=== PATIENT | female | born 1985 | race Caucasian/White ===

== ENCOUNTER 2020-03-17 16:45 | Emergency (ER) | payer BC ==
[~2020-03-17] VITALS: Ht 161.5 cm; Wt 127.0 kg
--- NOTE | 2020-03-17 17:08 | ED Fever ---
History of Present Illness General Stated Complaint: SYNCOPE Source: patient Exam Limitations: no limitations History of Present Illness Date Seen by Provider: Mar 17, 2020 Time Seen by Provider: 16:50 Initial Comments The patient is a pleasant obese 35-year-old female who presents via EMS for evaluation of fever and syncope. She states that over the last 2 or 3 days she has been having a fever with some intermittent nausea and a cough. She states that yesterday she called the [facility] to see if she should have a coronavirus testing and they told her that she did not need to get one. Today she was at home and passed out and her called EMS. Currently she denies headache, neck pain or stiffness, nausea, abdominal or back pain, urinary complaints, dizziness, sore throat, earache, vision changes, confusion, rash, or diarrhea. She is alert and oriented 4, calm, and appears to be in no distress this time. She states that her temperature was as high as 104 or 105 yesterday. Upon arrival her temperature is around 100F. Timing/Duration: other (2-3 days) Fever Quality: low grade Fever Therapy PSYCH TECH: none Associated Symptoms: cough, nausea/vomiting Allergies and Home Medications Allergies Coded Allergies: No Known Drug Allergies (Unverified , 03/17/20) Patient Home Medication List Home Medication List Reviewed: Yes Review of Systems Review of Systems Constitutional: fever EENTM: no symptoms reported Respiratory: cough Cardiovascular: syncope Gastrointestinal: no symptoms reported Genitourinary: no symptoms reported Musculoskeletal: no symptoms reported Skin: no symptoms reported Psychiatric/Neurological: No Symptoms Reported Hematologic/Lymphatic: No Symptoms Reported Immunological/Allergic: no symptoms reported All Other Systems Reviewed Negative Unless Noted: Yes Past Qqyrpnk-Lozena-Gbkuod Hx Past Med/Social Hx: Reviewed Nursing Past Med/Soc Hx Physical Exam Vital Signs - First Documented 03/17/20 16:48 Temp 37.8 Pulse 97 Resp 16 B/P (MAP) 130/62 (84) Pulse Ox 99 O2 Delivery Room Air Capillary Refill : Height: '" Weight: lbs. oz. kg; BMI Method: General Appearance: WD/WN, no apparent distress, obese Eyes: Bilateral Eye Normal Inspection, Bilateral Eye PERRL, Bilateral Eye EOMI HEENT: PERRL/EOMI, pharynx normal Neck: non-tender, full range of motion, supple, normal inspection, other (negative Kernig's and Brudzinski signs) Respiratory: lungs clear, normal breath sounds, no respiratory distress, no accessory muscle use Cardiovascular: regular rate, rhythm, no edema, no JVD, no murmur Gastrointestinal: normal bowel sounds, non tender, soft, no pulsatile mass Extremities: non-tender, no pedal edema Neurologic/Psychiatric: no motor/sensory deficits, alert, normal mood/affect, oriented x 3 Skin: normal color, warm/dry Lymphatic: no adenopathy Focused Exam Lactate Level 03/17/20 16:50: Lactic Acid Level 2.52*H Lactic Acid Level Laboratory Tests Test 03/17/20 16:50 Lactic Acid Level 2.52 MMOL/L (0.50-2.00) *H Progress/Results/Core Measures Suspected Sepsis SIRS Temperature: Pulse: Respiratory Rate: Laboratory Tests 03/17/20 16:50: White Blood Count 6.6 Blood Pressure / Mean: 03/17/20 16:50: Lactic Acid Level 2.52*H Laboratory Tests 03/17/20 16:50: Platelet Count 409H Results/Orders Lab Results Laboratory Tests Test 03/17/20 16:50 03/17/20 16:55 03/17/20 17:38 Range/Units White Blood Count 6.6 4.3-11.0 10^3/uL Red Blood Count 4.15 L 4.35-5.85 10^6/uL Hemoglobin 7.5 L 11.5-16.0 G/DL Hematocrit 27 L 35-52 % Mean Corpuscular Volume 64 L 80-99 FL Mean Corpuscular Hemoglobin 18 L 25-34 PG Mean Corpuscular Hemoglobin Concent 27 L 32-36 G/DL Red Cell Distribution Width 20.4 H 10.0-14.5 % Platelet Count 409 H 130-400 10^3/uL Mean Platelet Volume 8.8 7.4-10.4 FL Immature Granulocyte % (Auto) 1 % Neutrophils (%) (Auto) 77 H 42-75 % Lymphocytes (%) (Auto) 11 L 12-44 % Monocytes (%) (Auto) 11 0-12 % Eosinophils (%) (Auto) 0 0-10 % Basophils (%) (Auto) 0 0-10 % Neutrophils # (Auto) 5.1 1.8-7.8 X 10^3 Lymphocytes # (Auto) 0.7 L 1.0-4.0 X 10^3 Monocytes # (Auto) 0.7 0.0-1.0 X 10^3 Eosinophils # (Auto) 0.0 0.0-0.3 10^3/uL Basophils # (Auto) 0.0 0.0-0.1 10^3/uL Immature Granulocyte # (Auto) 0.0 0.0-0.1 10^3/uL Lactic Acid Level 2.52 *H 0.50-2.00 MMOL/L Magnesium Level 1.8 1.6-2.4 MG/DL Urine Color YELLOW Urine Clarity CLOUDY Urine pH 6.5 5-9 Urine Specific [place] 1.020 1.016-1.022 Urine Protein 1+ H NEGATIVE Urine Glucose (UA) NEGATIVE NEGATIVE Urine Ketones NEGATIVE NEGATIVE Urine Nitrite NEGATIVE NEGATIVE Urine Bilirubin NEGATIVE NEGATIVE Urine Urobilinogen 0.2 < = 1.0 MG/DL Urine Leukocyte Esterase NEGATIVE NEGATIVE Urine RBC (Auto) NEGATIVE NEGATIVE Urine RBC 5-10 H /HPF Urine WBC 10-25 H /HPF Urine Squamous Epithelial Cells 10-25 H /HPF Urine Crystals NONE /LPF Urine Bacteria LARGE H /HPF Urine Casts PRESENT /LPF Urine Granular Casts 2-5 H /LPF Urine Mucus NEGATIVE /LPF Urine Culture Indicated YES Urine Test NEGATIVE NEGATIVE Micro Results Microbiology 03/17/20 Influenza Types A,B Antigen ([facility]) - Final, Complete My Orders Orders - EDUARD MAYORGA DO Cbc With Automated Diff (03/17/20 16:54) Hcg,Qualitative Urine (03/17/20 16:54) Lactic Acid Analyzer (03/17/20 16:54) Magnesium (03/17/20 16:54) Ua Culture If Indicated (03/17/20 16:54) Blood Culture (03/17/20 16:54) Influenza A And B Antigens (03/17/20 16:54) Ekg Tracing (03/17/20 16:54) Continuous Ekg Monitoring (03/17/20 16:54) Procalcitonin (Pct) (03/17/20 16:59) Coronavirus Sars-Cov-2 So 2018 (03/17/20 16:59) Chest 1 View Ap/Pa Only (03/17/20 17:47) Urine Culture (03/17/20 17:38) Vital Signs/I&O 10/2/20 16:48 Temp 37.8 Pulse 97 Resp 16 B/P (MAP) 130/62 (84) Pulse Ox 99 O2 Delivery Room Air Capillary Refill : Progress Note : Progress Note @191 - the patient states that she is feeling better at this time. I brought up the anemia noted on her lab results and the patient states that she has a hist ory of anemia and used to take iron supplements but does not currently. She has no new complaints. I explained the patient that she has been tested for the coronavirus and that she needs to stay home and away from others until she knows the results of her tests. She expresses verbal understanding and agreement with this plan and feels comfortable going home at this time. Workup today fails reveal any emergent pathology and the patient is stable for discharge. ECG Comment @1700 - Sinus tachycardia, rate of 101, mild left axis deviation, no acute ischemic findings noted, no STEMI, reviewed and interpreted by myself Diagnostic Imaging Diagonstic Imaging: Xray Comments [facility], [place] NAME: BREE SARMIENTO [facility] REC#: [id number] PT STATUS: REG ER : 1985 PHYSICIAN: EDUARD MAYORGA DO ADMIT DATE: 03/17/20/ER FS Signed Date of Exam:03/17/20 CHEST 1 VIEW AP/PA ONLY EXAMINATION: Chest 1 view. HISTORY: Fever. Cough. COMPARISON: None available. FINDINGS: The lung volumes are normal. No focal consolidation is seen. No large pleural effusion or pneumothorax is seen. The cardiomediastinal silhouette is prominent. No acute osseous abnormality is seen. IMPRESSION: 1. Prominent cardiac silhouette, which may be partially due to technique. Recommend correlation with patient history. 2. No focal consolidation or pleural effusion. Dictated by: Dictated on workstation # [id number] Dict: 03/17/201824 Trans: 03/17/201832 [facility] [id number] Interpreted by: LAURENT SERRANO DO Electronically signed by: LAURENT SERRANO DO 03/17/201832 Departure Impression Primary Impression: Viral syndrome Additional Impressions: Syncope Anemia Disposition: 01 HOME, SELF-CARE Condition: Stable Departure-Patient Inst. Decision time for Depature: 19:12 Referrals: MARY HUNT DO (PCP/Family) Primary Care Physician Patient Instructions: Anemia Caused by Low Iron, Adult (DC), Syncope (Fainting) (DC), Viral Upper Respiratory Infection, Adult (DC) Add. Discharge Instructions: As we discussed your hemoglobin which is your blood count was low today and this needs to be followed up with her primary care in the next few days. He used to take iron supplements and he may need to take take them again. You were tested for the coronavirus today and the results may take a few days to come back. They state home and away from other people until he noted the results of this test. Return to the emergency Department immediately for difficulty breathing, new or worsening symptoms. Take Tylenol or ibuprofen at home for fever or pain relief and drink plenty of water to stay well-hydrated. EDUARD MAYORGA DO Mar 17, 2020 17:08
[2020-03-17 17:12] LABS: HEMATOCRIT 27 % (35-52); MEAN CORPUSCULAR HGB CONC 27 G/DL (32-36); MEAN CORPUSCULAR VOLUME 64 FL (80-99); MEAN PLATELET VOLUME 8.8 FL (7.4-10.4); PLATELET COUNT 409 10^3/uL (130-400); WHITE BLOOD COUNT 6.6 10^3/uL (4.3-11.0)
[2020-03-17 17:13] LABS: BASOPHILS % (AUTO) 0 % (0-10); EOSINOPHILS % (AUTO) 0 % (0-10); HEMOGLOBIN 7.5 G/DL (11.5-16.0); LYMPHOCYTES # (AUTO) 0.7 X 10^3 (1.0-4.0); LYMPHOCYTES % (AUTO) 11 % (12-44); MEAN CORPUSCULAR HEMOGLOBIN 18 PG (25-34); MONOCYTES # (AUTO) 0.7 X 10^3 (0.0-1.0); MONOCYTES % (AUTO) 11 % (0-12); NEUTROPHILS # (AUTO) 5.1 X 10^3 (1.8-7.8); NEUTROPHILS % (AUTO) 77 % (42-75)
[2020-03-17 17:51] LABS: BACTERIA,URINE LARGE /HPF; BILIRUBIN,URINE NEGATIVE (NEGATIVE); CLARITY,URINE CLOUDY; COLOR,URINE YELLOW; GLUCOSE, URINE (UA) NEGATIVE (NEGATIVE); KETONES,URINE NEGATIVE (NEGATIVE); LEUKOCYTE ESTERASE ,URINE NEGATIVE (NEGATIVE); NITRITE,URINE NEGATIVE (NEGATIVE); PH,URINE 6.5 (5-9); PROTEIN,URINE 1+ (NEGATIVE)
--- NOTE | 2020-03-17 18:29 | Diagnostic Imaging Report ---
EXAMINATION: Chest 1 view. HISTORY: Fever. Cough. COMPARISON: None available. FINDINGS: The lung volumes are normal. No focal consolidation is seen. No large pleural effusion or pneumothorax is seen. The cardiomediastinal silhouette is prominent. No acute osseous abnormality is seen. IMPRESSION: 1. Prominent cardiac silhouette, which may be partially due to technique. Recommend correlation with patient history. 2. No focal consolidation or pleural effusion. Dictated by: Dictated on workstation # [id number]
[2020-03-17 19:18] VITALS: BP 130/62
--- NOTE | 2020-03-19 15:45 | NUR ---
Patient notified of Positive COVID test. Questions answered.
== END 2020-03-17 19:26 | disposition home or self-care (01) ==
LOC: EDUNIT# 16:45 → ER FS 16:46
DX: U07.1 COVID-19 (principal); R55 Syncope and collapse; D64.9 Anemia, unspecified; E66.9 Obesity, unspecified
CPT/HCPCS: 36415; 71045; 81000; 83605; 83735; 84145; 84703; 85025; 87040; 87088; 87804 ×2; 93005; 99284; U0002; 87635

== ENCOUNTER → 2020-03-27 | Outpatient (CLI) | payer BC ==
[2020-03-27 12:03] LABS: BASOPHILS % (AUTO) 0 % (0-10); EOSINOPHILS # (AUTO) 0.2 10^3/uL (0.0-0.3); EOSINOPHILS % (AUTO) 2 % (0-10); HEMATOCRIT 31 % (35-52); HEMOGLOBIN 8.3 G/DL (11.5-16.0); LYMPHOCYTES # (AUTO) 1.5 X 10^3 (1.0-4.0); LYMPHOCYTES % (AUTO) 20 % (12-44); MEAN CORPUSCULAR HEMOGLOBIN 17 PG (25-34); MEAN CORPUSCULAR HGB CONC 26 G/DL (32-36); MEAN CORPUSCULAR VOLUME 66 FL (80-99); MEAN PLATELET VOLUME 9.4 FL (7.4-10.4); MONOCYTES # (AUTO) 0.7 X 10^3 (0.0-1.0); MONOCYTES % (AUTO) 9 % (0-12); NEUTROPHILS # (AUTO) 5.1 X 10^3 (1.8-7.8); NEUTROPHILS % (AUTO) 67 % (42-75); PLATELET COUNT 802 10^3/uL (130-400); WHITE BLOOD COUNT 7.6 10^3/uL (4.3-11.0)
== END ==
LOC: LAB FS 11:08
PROVIDERS: ATTEND Family Medicine
DX: D64.9 Anemia, unspecified (principal)
CPT/HCPCS: 36415; 82728; 83540; 85025

== ENCOUNTER → 2020-05-01 | Outpatient (CLI) | payer BC ==
--- NOTE | 2020-05-01 11:07 | Diagnostic Imaging Report ---
Indication: Fall with right knee pain. Time of exam 10:45 AM 3 views of the right knee were obtained. Alignment is normal. Joint spaces are well-maintained. Articular surfaces are smooth. No fracture, dislocation or effusion is detected. IMPRESSION: No acute abnormality is detected. Dictated by: Dictated on workstation # [id number]
== END ==
LOC: LAB FS 10:24
PROVIDERS: ATTEND Family Medicine
DX: M25.562 Pain in left knee (principal)
CPT/HCPCS: 73562

== ENCOUNTER → 2020-07-07 | Outpatient (CLI) | payer BC ==
[2020-07-07 09:30] LABS: ALKALINE PHOSPHATASE 90 U/L (40-136); BILIRUBIN,TOTAL 0.5 MG/DL (0.1-1.0); BUN/CREATININE RATIO 13; CALCIUM 9.9 MG/DL (8.5-10.1); CARBON DIOXIDE 28 MMOL/L (21-32); CHLORIDE 102 MMOL/L (98-107); GFR ESTIMATED > 60; GLUCOSE 142 MG/DL (70-105); SODIUM 141 MMOL/L (135-145)
[2020-07-07 09:31] LABS: ALANINE AMINOTRANSFERASE 14 U/L (0-55); ALBUMIN 4.2 GM/DL (3.2-4.5); HEMOGLOBIN 13.2 G/DL (11.5-16.0); MEAN CORPUSCULAR HEMOGLOBIN 25 PG (25-34); TOTAL PROTEIN 7.5 GM/DL (6.4-8.2); WHITE BLOOD COUNT 7.3 10^3/uL (4.3-11.0)
[2020-07-07 09:32] LABS: HEMATOCRIT 42 % (35-52); MEAN CORPUSCULAR HGB CONC 31 G/DL (32-36); MEAN CORPUSCULAR VOLUME 80 FL (80-99)
[2020-07-07 09:33] LABS: BASOPHILS % (AUTO) 1 % (0-10); EOSINOPHILS # (AUTO) 0.3 10^3/uL (0.0-0.3); EOSINOPHILS % (AUTO) 3 % (0-10); LYMPHOCYTES # (AUTO) 1.2 X 10^3 (1.0-4.0); LYMPHOCYTES % (AUTO) 17 % (12-44); MEAN PLATELET VOLUME 9.2 FL (7.4-10.4); MONOCYTES # (AUTO) 0.4 X 10^3 (0.0-1.0); MONOCYTES % (AUTO) 6 % (0-12); NEUTROPHILS # (AUTO) 5.3 X 10^3 (1.8-7.8); NEUTROPHILS % (AUTO) 73 % (42-75); PLATELET COUNT 506 10^3/uL (130-400)
[2020-07-07 10:02] LABS: CHOLESTEROL 181 MG/DL (< 200); HDL CHOLESTEROL 40 MG/DL (40-60); TRIGLYCERIDES 143 MG/DL (<150); VLDL CHOLESTEROL 29 MG/DL (5-40)
== END ==
LOC: LAB FS 07:08
PROVIDERS: ATTEND Family Medicine
DX: Z00.00 Encounter for general adult medical examination without abnormal findings (principal); E07.9 Disorder of thyroid, unspecified; R05 Cough; R73.9 Hyperglycemia, unspecified
CPT/HCPCS: 36415; 80053; 80061; 83036; 84443; 85025

== ENCOUNTER → 2020-07-11 | Outpatient (CLI) | payer BC ==
--- NOTE | 2020-07-11 09:57 | Diagnostic Imaging Report ---
EXAMINATION: Chest 2 view HISTORY: Shortness of breath. Cough. COMPARISON: 03/17/2020. FINDINGS: The lung volumes are normal. No focal consolidation is seen. No large pleural effusion or pneumothorax is seen. The cardiomediastinal silhouette is normal in size and contour. No acute osseous abnormality is seen. IMPRESSION: 1. No focal consolidations or pleural effusions. Dictated by: Dictated on workstation # [id number]
== END ==
LOC: RAD FS 09:27
PROVIDERS: ATTEND Family Medicine
DX: R06.02 Shortness of breath (principal); R05 Cough
CPT/HCPCS: 71046

== ENCOUNTER → 2020-08-30 | Outpatient (CLI) | payer BC ==
[~2020-08-30] MED LIST: RT-ALBUTEROL SULF 2.5 MG/3 ML PRE-MIX VIAL INH ONE
== END ==
LOC: RT 10:18
PROVIDERS: ATTEND Family Medicine
DX: R06.00 Dyspnea, unspecified (principal)
CPT/HCPCS: 94060; 94726; 94729

== ENCOUNTER → 2021-02-27 | Outpatient (CLI) | payer BC ==
[2021-02-27 16:19] LABS: HEMATOCRIT 38 % (35-52); HEMOGLOBIN 12.2 g/dL (11.5-16.0); MEAN CORPUSCULAR HEMOGLOBIN 26 pg (25-34); MEAN CORPUSCULAR HGB CONC 32 g/dL (32-36); MEAN CORPUSCULAR VOLUME 81 fL (80-99); PLATELET COUNT 647 10^3/uL (130-400); WHITE BLOOD COUNT 11.7 10^3/uL (4.3-11.0)
[2021-02-27 16:20] LABS: BASOPHILS % (AUTO) 1 % (0-10); EOSINOPHILS % (AUTO) 2 % (0-10); LYMPHOCYTES # (AUTO) 2.3 X 10^3 (1.0-4.0); LYMPHOCYTES % (AUTO) 20 % (12-44); MEAN PLATELET VOLUME 8.8 fL (9.0-12.2); MONOCYTES # (AUTO) 0.7 X 10^3 (0.0-1.0); MONOCYTES % (AUTO) 6 % (0-12); NEUTROPHILS # (AUTO) 8.3 X 10^3 (1.8-7.8); NEUTROPHILS % (AUTO) 71 % (42-75)
[2021-02-27 16:21] LABS: BASOPHILS # (AUTO) 0.1 10^3/uL (0.0-0.1); EOSINOPHILS # (AUTO) 0.3 10^3/uL (0.0-0.3)
[2021-02-27 17:30] LABS: ALBUMIN 4.3 GM/DL (3.2-4.5); BILIRUBIN,TOTAL 0.6 MG/DL (0.1-1.0); CALCIUM 9.7 MG/DL (8.5-10.1); CREATININE SERUM 0.61 MG/DL (0.60-1.30); POTASSIUM 3.8 MMOL/L (3.6-5.0); TOTAL PROTEIN 7.8 GM/DL (6.4-8.2)
== END ==
LOC: LAB FS 15:48
PROVIDERS: ATTEND Family Medicine
DX: E11.9 Type 2 diabetes mellitus without complications (principal); E03.9 Hypothyroidism, unspecified; I10 Essential (primary) hypertension; E61.1 Iron deficiency; R53.83 Other fatigue
CPT/HCPCS: 36415; 80053; 82306; 82607; 83036; 84443; 85025

== ENCOUNTER → 2021-05-11 | Outpatient (CLI) | payer SELFPAY ==
--- NOTE | 2021-05-11 13:56 | Diagnostic Imaging Report ---
CT coronary calcium score INDICATION: Mixed hyperlipidemia. Short of breath and intermittent chest pain. TECHNIQUE: High-resolution CT of the chest was performed through the level of the heart with particular attention paid to the coronary arteries. Images were analyzed for the extent and presence of coronary calcifications using coronary calcium quantification software. FINDINGS: There are no identifiable coronary calcifications demonstrated. The patient's total coronary Michelle score is 0. Given no identifiable coronary calcifications, the likelihood of hemodynamically significant coronary artery disease is low. Heart size appears appropriate. There is no pericardial collection. The thoracic aorta is normal in caliber where visualized. The visualized portion of the lungs appear clear. IMPRESSION: 1. No identified coronary artery calcifications. The patient's total coronary Michelle score is 0. Lack of identifiable coronary calcifications makes the likelihood of hemodynamically significant coronary artery disease very low. 2. Visualized portion of the lungs are clear. Dictated by: Dictated on workstation # [id number]
== END ==
LOC: RAD FS 08:33
PROVIDERS: ATTEND Family Medicine
DX: E78.2 Mixed hyperlipidemia (principal); R06.02 Shortness of breath; R07.9 Chest pain, unspecified
CPT/HCPCS: 75571

== ENCOUNTER 2021-05-29 16:22 | Emergency (ER) | payer BC ==
[~2021-05-29] VITALS: Ht 160 cm; Wt 56.0 kg
--- NOTE | 2021-05-29 16:30 | ED Chest Pain ---
General Stated Complaint: CP,LEFT ARM History of Present Illness Date Seen by Provider: May 29, 2021 Time Seen by Provider: 16:30 Initial Comments 36-year-old female presents with a mild discomfort in her left arm/very high left upper chest. She reports that she thinks is by nothing that she "just freaked herself out" but came in to have it evaluated to make sure it was not her heart. Patient reports that nothing makes it worse or better. That is very minimal and just a minor discomfort at this time. Patient reports that she is recently had a chest CT that was negative because she was anxious about her breathing. Patient has no radiation of the pain, no nausea, vomiting, diaphoresis or any other associated symptoms. Patient reports she took 5 aspirin prior to arrival. Allergies and Home Medications Allergies Coded Allergies: No Known Drug Allergies (Unverified , 03/17/20) Patient Home Medication List Home Medication List Reviewed: Yes Review of Systems Review of Systems Constitutional: see HPI; No chills EENTM: No Symptoms Reported Respiratory: No Symptoms Reported Cardiovascular: See HPI; Denies Irregular Heart Rate, Denies Lightheadedness, Denies Palpitations Gastrointestinal: No Symptoms Reported Genitourinary: No Symptoms Reported Musculoskeletal: see HPI Psychiatric/Neurological: No Symptoms Reported Endocrine: No Symptoms Reported Hematologic/Lymphatic: No Symptoms Reported Past Ysxkmnj-Apdfqs-Uoiglh Hx Seasonal Allergies Seasonal Allergies: Yes Past Medical History Surgeries: No Section Respiratory: No Cardiac: Yes Hypotension Neurological: No Sexually Transmitted Disease: No HIV/AIDS: No Genitourinary: No Gastrointestinal: No Musculoskeletal: No Hypothyroidsim HEENT: No Cancer: No Psychosocial: No Integumentary: No Blood Disorders: No Physical Exam Vital Signs Vital Signs - First Documented 05/29/21 16:25 Temp 36.4 Pulse 81 Resp 18 B/P (MAP) 172/82 (112) Pulse Ox 98 O2 Delivery Room Air Capillary Refill : Height, Weight, BMI Height: '" Weight: lbs. oz. 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 Skin: Normal Color, Warm/Dry Progress/Results/Core Measures Results/Orders Lab Results Laboratory Tests Test 05/29/21 16:40 Range/Units White Blood Count 11.3 H 4.3-11.0 10^3/uL Red Blood Count 4.77 3.80-5.11 10^6/uL Hemoglobin 12.0 11.5-16.0 g/dL Hematocrit 38 35-52 % Mean Corpuscular Volume 80 80-99 fL Mean Corpuscular Hemoglobin 25 25-34 pg Mean Corpuscular Hemoglobin Concent 32 32-36 g/dL Red Cell Distribution Width 16.1 H 10.0-14.5 % Platelet Count 562 H 130-400 10^3/uL Mean Platelet Volume 8.6 L 9.0-12.2 fL Immature Granulocyte % (Auto) 0 % Neutrophils (%) (Auto) 73 42-75 % Lymphocytes (%) (Auto) 16 12-44 % Monocytes (%) (Auto) 8 0-12 % Eosinophils (%) (Auto) 3 0-10 % Basophils (%) (Auto) 1 0-10 % Neutrophils # (Auto) 8.2 H 1.8-7.8 X 10^3 Lymphocytes # (Auto) 1.9 1.0-4.0 X 10^3 Monocytes # (Auto) 0.9 0.0-1.0 X 10^3 Eosinophils # (Auto) 0.3 0.0-0.3 10^3/uL Basophils # (Auto) 0.1 0.0-0.1 10^3/uL Immature Granulocyte # (Auto) 0.0 0.0-0.1 10^3/uL Prothrombin Time 12.2 12.2-14.7 SEC INR Comment 0.9 0.8-1.4 Activated Partial Thromboplast Time 33 24-35 SEC Sodium Level 138 135-145 MMOL/L Potassium Level 3.7 3.6-5.0 MMOL/L Chloride Level 97 L 98-107 MMOL/L Carbon Dioxide Level 27 21-32 MMOL/L Anion Gap 14 5-14 MMOL/L Blood Urea Nitrogen 8 7-18 MG/DL Creatinine 0.70 0.60-1.30 MG/DL Estimat Glomerular Filtration Rate 95 BUN/Creatinine Ratio 11 Glucose Level 108 H 70-105 MG/DL Calcium Level 9.7 8.5-10.1 MG/DL Corrected Calcium 9.5 8.5-10.1 MG/DL Magnesium Level 1.8 1.6-2.4 MG/DL Total Bilirubin 0.5 0.1-1.0 MG/DL Aspartate Amino Transf (AST/SGOT) 16 5-34 U/L Alanine Aminotransferase (ALT/SGPT) 17 0-55 U/L Alkaline Phosphatase 88 40-136 U/L Myoglobin 21.0 10.0-92.0 NG/ML Troponin I < 0.30 <0.30 NG/ML Total Protein 8.1 6.4-8.2 GM/DL Albumin 4.3 3.2-4.5 GM/DL My Orders Orders - SHETTYAURAJULIETH L DO Cbc With Automated Diff (05/29/21 16:33) Magnesium (05/29/21 16:33) Chest 1 View Ap/Pa Only (05/29/21 16:33) Ekg Tracing (05/29/21 16:33) Comprehensive Metabolic Panel (05/29/21 16:33) Myoglobin Serum (05/29/21 16:33) Protime With Inr (05/29/21 16:33) Partial Thromboplastin Time (05/29/21 16:33) Monitor-Rhythm Ecg Trace Only (05/29/21 16:33) Aspirin Chewable Tablet (Baby Aspirin Ch (05/29/21 16:45) Ed Iv/Invasive Line Start (05/29/21 16:33) Troponin I Fs (05/29/21 16:33) Vital Signs/I&O 05/29/21 05/29/21 16:25 17:27 Temp 36.4 36.2 Pulse 81 77 Resp 18 18 B/P (MAP) 172/82 (112) 122/76 Pulse Ox 98 99 O2 Delivery Room Air Room Air Progress Progress Note : Progress Note Patient with a nonspecific pain is located more in the shoulder than the chest. Patient with negative EKG, chest x-ray, troponin and labs. She does have a very minor elevated white count. This is very nonspecific. Discussed with patient that does not appear to have any cardiac related pain. Patient's pain as virtu ally resolved. Patient stable and discharged home Initial ECG Impression Date: May 29, 2021 Initial ECG Impression Time: 16:26 Initial ECG Rate: 71 Initial ECG Rhythm: Normal Sinus Initial ECG Intervals: Normal Initial ECG Impression: Normal Departure Impression Primary Impression: Nonspecific chest pain Disposition: 01 HOME, SELF-CARE Condition: Stable Departure-Patient Inst. Referrals: YEHUDA DOMINGUEZ MD (PCP/Family) Primary Care Physician Patient Instructions: Chest Pain That Is Not Caused by the Heart (DC) Add. Discharge Instructions: Follow-up with your primary care provider for further outpatient evaluation Return to the ER as JULIETH Verde DO May 29, 2021 16:30
[2021-05-29] MEDS ORDERED: ASPIRIN 81 MG CHEW (CHILDREN'S ASA) PO ONE (16:45)
--- NOTE | 2021-05-29 16:49 | Diagnostic Imaging Report ---
EXAMINATION: Chest, 1 view. HISTORY: Chest pain. COMPARISON: 03/17/2020. FINDINGS: The heart size and pulmonary vasculature are normal. The lungs are clear without consolidation, pleural effusion, or pneumothorax. The osseous structures are intact. IMPRESSION: No acute radiographic abnormality in the chest. Dictated by: Dictated on workstation # [id number]
[2021-05-29 16:52] LABS: HEMATOCRIT 38 % (35-52); MEAN CORPUSCULAR HEMOGLOBIN 25 pg (25-34); MEAN CORPUSCULAR HGB CONC 32 g/dL (32-36); MEAN CORPUSCULAR VOLUME 80 fL (80-99); MEAN PLATELET VOLUME 8.6 fL (9.0-12.2); PLATELET COUNT 562 10^3/uL (130-400); WHITE BLOOD COUNT 11.3 10^3/uL (4.3-11.0)
[2021-05-29 16:53] LABS: BASOPHILS # (AUTO) 0.1 10^3/uL (0.0-0.1); BASOPHILS % (AUTO) 1 % (0-10); EOSINOPHILS # (AUTO) 0.3 10^3/uL (0.0-0.3); EOSINOPHILS % (AUTO) 3 % (0-10); LYMPHOCYTES # (AUTO) 1.9 X 10^3 (1.0-4.0); LYMPHOCYTES % (AUTO) 16 % (12-44); MONOCYTES # (AUTO) 0.9 X 10^3 (0.0-1.0); MONOCYTES % (AUTO) 8 % (0-12); NEUTROPHILS # (AUTO) 8.2 X 10^3 (1.8-7.8); NEUTROPHILS % (AUTO) 73 % (42-75)
[2021-05-29 17:08] LABS: INR 0.9 (0.8-1.4); PROTHROMBIN TIME PATIENT 12.2 SEC (12.2-14.7)
[2021-05-29 17:22] LABS: POTASSIUM 3.7 MMOL/L (3.6-5.0)
[2021-05-29 17:23] LABS: BILIRUBIN,TOTAL 0.5 MG/DL (0.1-1.0); CALCIUM 9.7 MG/DL (8.5-10.1); CREATININE SERUM 0.7 MG/DL (0.60-1.30); MAGNESIUM 1.8 MG/DL (1.6-2.4); TOTAL PROTEIN 8.1 GM/DL (6.4-8.2)
[2021-05-29 17:24] LABS: ALBUMIN 4.3 GM/DL (3.2-4.5)
[2021-05-29 17:27] VITALS: BP 122/76
== END 2021-05-29 17:58 | disposition home or self-care (01) ==
LOC: EDUNIT# 16:22 → ER FS 16:23
DX: R07.89 Other chest pain (principal); E66.9 Obesity, unspecified; Z68.42 Body mass index [BMI] 45.0-49.9, adult
CPT/HCPCS: 36415; 71045; 80053; 83735; 83874; 84484; 85025; 85610; 85730; 93005; 93041

== ENCOUNTER 2021-12-14 13:13 | Emergency (ER) | payer BC ==
[~2021-12-14] VITALS: Ht 160 cm; Wt 56.0 kg
[2021-12-14] MEDS ORDERED: KETOROLAC 30 MG/ML VIAL IM ONE (13:45)
--- NOTE | 2021-12-14 13:45 | ED General ---
General Chief Complaint: Dizziness/Syncope Stated Complaint: DIZZINESS; NAUSEA Nursing Triage Note: PT REPORTS SHE LAST NIGHT SHE WAS DIZZY WITH SOME CONFUSION AND A STOMACH ACHE. SHE REPORTS SSHE IS BETTER TODAY BUT STILL DIZZY AND WANTS CHECKED OUT. History of Present Illness Date Seen by Provider: Dec 14, 2021 Time Seen by Provider: 13:37 Initial Comments 36-year-old female with PMH of migraines and anxiety, is here with complaints of dizziness and headache today. Patient normally has aura of right eye irritation and occasional dizziness right before she gets a migraine headache which is usually right-sided. Today patient had the same symptoms but was a little concerned and was wondering if the momentary dizziness was part of the aura. The dizziness resolved and then she had a migraine. Headache is still present. Patient normally takes ibuprofen for migraines at home. Patient has some mild associated nausea. Denies fever, vomiting, seizures, blurry vision. Allergies and Home Medications Allergies Coded Allergies: No Known Drug Allergies (Unverified , 03/17/20) Patient Home Medication List Home Medication List Reviewed: Yes Review of Systems Review of Systems Constitutional: no symptoms reported EENTM: no symptoms reported Respiratory: no symptoms reported Cardiovascular: no symptoms reported Gastrointestinal: no symptoms reported Genitourinary: no symptoms reported Musculoskeletal: no symptoms reported Skin: no symptoms reported Psychiatric/Neurological: Headache Hematologic/Lymphatic: No Symptoms Reported Immunological/Allergic: no symptoms reported Past Oavbtnv-Drgyyg-Acqxzc Hx Patient Social History Tobacco Use?: No Use of E-Cig and/or Vaping dev: No Substance use?: No Alcohol Use?: No Pt feels they are or have been: No Seasonal Allergies Seasonal Allergies: Yes Past Medical History Surgery/Hospitalization HX: HYPERTENSION DIABETIC Surgeries: No Section Respiratory: No Cardiac: Yes Hypotension Neurological: No Sexually Transmitted Disease: No HIV/AIDS: No Genitourinary: No Gastrointestinal: No Musculoskeletal: No Hypothyroidsim HEENT: No Cancer: No Psychosocial: No Integumentary: No Blood Disorders: No Physical Exam Vital Signs Vital Signs - First Documented 12/14/21 13:23 Temp 36.7 Pulse 87 Resp 18 B/P (MAP) 143/65 (91) Pulse Ox 98 Capillary Refill : Less Than 3 Seconds Height, Weight, BMI Height: '" Weight: lbs. oz. kg; 21.00 BMI Method: General Appearance: No Apparent Distress, WD/WN HEENT: PERRL/EOMI, TMs Normal, Normal ENT Inspection, Pharynx Normal Neck: Full Range of Motion, Normal Inspection, Non Tender, Supple Respiratory: Chest Non Tender, Lungs Clear, Normal Breath Sounds Cardiovascular: Regular Rate, Rhythm Gastrointestinal: Non Tender, Soft Neurologic/Psychiatric: Alert, Oriented x3, No Motor/Sensory Deficits Skin: Normal Color Progress/Results/Core Measures Suspected Sepsis SIRS Temperature: Pulse: 87 Respiratory Rate: 18 Blood Pressure 143 /65 Mean: 91 Results/Orders Lab Results Laboratory Tests Test 12/14/21 13:42 Range/Units Glucometer 118 H 70-110 MG/DL My Orders Orders - ABIOLA NEGRETE MD Ketorolac Injection (Toradol Injection) (12/14/21 13:45) Ondansetron Oral Dissolve Tab (Zofran (12/14/21 13:58) Medications Given in ED Current Medications Medications Dose Ordered Sig/Margie Route Start Time Stop Time Status Last Admin Dose Admin Ketorolac Tromethamine 30 mg ONCE ONCE IM 12/14/21 13:45 12/14/21 13:56 DC 12/14/21 14:05 30 MG Vital Signs/I&O 12/14/21 13:23 Temp 36.7 Pulse 87 Resp 18 B/P (MAP) 143/65 (91) Pulse Ox 98 Capillary Refill : Less Than 3 Seconds Blood Pressure Mean: 91 Progress Note : Progress Note 1. MIGRAINE WITH AURA: - Pt's aura consist of right eye irritation and momentary dizziness - Toradol and ZOfran resolved the problem - Pt is able to ambulate. - Pt has a PCP visit today at 3:30. Advised to keep appointment - Continue to stay hydrated - Control migraine headache - Stress reduction methods, adequate sleep - Follow up with PCP today: Pt has an appointment today Departure Impression Primary Impression: Migraine headache with aura Qualified Codes: G43.109 - Migraine with aura, not intractable, without status migrainosus Disposition: HOME, SELF-CARE Condition: Improved Departure-Patient Inst. Referrals: YEHUDA DOMINGUEZ MD (PCP) Primary Care Physician Patient Instructions: Migraines (DC), Home Headache Remedies, Vertigo (a Type of Dizziness) (DC) Add. Discharge Instructions: - Continue to stay hydrated - Control migraine headache - Stress reduction methods, adequate sleep - Follow up with PCP today: Pt has an appointment today All discharge instructions reviewed with patient and/or family. Voiced understanding. ABIOLA NEGRETE MD Dec 14, 2021 13:45
[2021-12-14] MEDS ORDERED: ONDANSETRON 4 MG (ZOFRAN) ORAL DISSOLVE TAB PO STA (13:58)
[2021-12-14 14:55] VITALS: BP 136/60
== END 2021-12-14 14:55 | disposition home or self-care (01) ==
LOC: EDUNIT# 13:13 → ER FS 13:16
DX: G43.109 Migraine with aura, not intractable, without status migrainosus (principal); Z28.310 Unvaccinated for COVID-19
CPT/HCPCS: 82947; 84703

== ENCOUNTER 2021-12-16 20:54 | Emergency (ER) | payer BC ==
[~2021-12-16] VITALS: Ht 160 cm; Wt 120.8 kg
--- NOTE | 2021-12-16 21:02 | ED Chest Pain ---
General Stated Complaint: CHEST PAIN History of Present Illness Date Seen by Provider: Dec 16, 2021 Time Seen by Provider: 21:00 Initial Comments 36-year-old female presents with upper chest pain that has been present for about 2 days. She reports it is constant. Nothing makes it better or worse. It does not radiate. Its in the midline, upper substernal. No nausea no vomiting no shortness of breath no cough no other systemic complaints. Allergies and Home Medications Allergies Coded Allergies: No Known Drug Allergies (Unverified , 03/17/20) Patient Home Medication List Home Medication List Reviewed: Yes Review of Systems Review of Systems Constitutional: No chills, No fever Respiratory: Denies Cough, Denies Shortness of Air Cardiovascular: Chest Pain (See HPI) Gastrointestinal: Denies Abdominal Pain, Denies Nausea, Denies Vomiting Musculoskeletal: no symptoms reported Skin: no symptoms reported Psychiatric/Neurological: No Symptoms Reported Endocrine: No Symptoms Reported Past Etibdbc-Allvqm-Jnxixi Hx Seasonal Allergies Seasonal Allergies: Yes Past Medical History Surgery/Hospitalization HX: HYPERTENSION DIABETIC Surgeries: No Section Respiratory: No Cardiac: Yes Hypotension Neurological: No Sexually Transmitted Disease: No HIV/AIDS: No Genitourinary: No Gastrointestinal: No Musculoskeletal: No Hypothyroidsim HEENT: No Cancer: No Psychosocial: No Integumentary: No Blood Disorders: No Physical Exam Vital Signs Vital Signs - First Documented 12/16/21 20:57 Temp 37.0 Pulse 86 Resp 14 B/P (MAP) 171/67 (101) Pulse Ox 86 O2 Delivery Room Air Capillary Refill : Height, Weight, BMI Height: '" Weight: lbs. oz. kg; 21.00 BMI Method: General Appearance: No Apparent Distress, WD/WN Neck: Non Tender, Supple Respiratory: Lungs Clear, Normal Breath Sounds Cardiovascular: Regular Rate, Rhythm, No Edema Gastrointestinal: Non Tender, Soft Extremity: Normal Capillary Refill, Normal Inspection Neurologic/Psychiatric: Alert, Oriented x3, No Motor/Sensory Deficits, Normal Mood/Affect Skin: Normal Color, Warm/Dry Progress/Results/Core Measures Results/Orders Lab Results Laboratory Tests Test 12/16/21 21:03 Range/Units White Blood Count 11.2 H 4.3-11.0 10^3/uL Red Blood Count 5.18 H 3.80-5.11 10^6/uL Hemoglobin 11.7 11.5-16.0 g/dL Hematocrit 38 35-52 % Mean Corpuscular Volume 73 L 80-99 fL Mean Corpuscular Hemoglobin 23 L 25-34 pg Mean Corpuscular Hemoglobin Concent 31 L 32-36 g/dL Red Cell Distribution Width 17.6 H 10.0-14.5 % Platelet Count 487 H 130-400 10^3/uL Mean Platelet Volume 9.0 9.0-12.2 fL Immature Granulocyte % (Auto) 0 % Neutrophils (%) (Auto) 62 42-75 % Lymphocytes (%) (Auto) 25 12-44 % Monocytes (%) (Auto) 9 0-12 % Eosinophils (%) (Auto) 4 0-10 % Basophils (%) (Auto) 1 0-10 % Neutrophils # (Auto) 7.0 1.8-7.8 10^3/uL Lymphocytes # (Auto) 2.7 1.0-4.0 10^3/uL Monocytes # (Auto) 1.0 0.0-1.0 10^3/uL Eosinophils # (Auto) 0.4 H 0.0-0.3 10^3/uL Basophils # (Auto) 0.1 0.0-0.1 10^3/uL Immature Granulocyte # (Auto) 0.0 0.0-0.1 10^3/uL Sodium Level 140 135-145 MMOL/L Potassium Level 3.5 L 3.6-5.0 MMOL/L Chloride Level 99 98-107 MMOL/L Carbon Dioxide Level 28 21-32 MMOL/L Anion Gap 13 5-14 MMOL/L Blood Urea Nitrogen 8 7-18 MG/DL Creatinine 0.63 0.60-1.30 MG/DL Estimat Glomerular Filtration Rate 119 BUN/Creatinine Ratio 13 Glucose Level 108 H 70-105 MG/DL Calcium Level 9.6 8.5-10.1 MG/DL Corrected Calcium 9.2 8.5-10.1 MG/DL Magnesium Level 1.6 1.6-2.4 MG/DL Total Bilirubin 0.9 0.1-1.0 MG/DL Aspartate Amino Transf (AST/SGOT) 16 5-34 U/L Alanine Aminotransferase (ALT/SGPT) 20 0-55 U/L Alkaline Phosphatase 83 40-136 U/L Troponin I < 0.30 <0.30 NG/ML C-Reactive Protein 0.64 H <0.50 MG/DL Total Protein 7.9 6.4-8.2 GM/DL Albumin 4.5 3.2-4.5 GM/DL Lipase 88 H 8-78 U/L My Orders Orders - JULIETH SHETTY DO Cbc With Automated Diff (12/16/21 21:02) Comprehensive Metabolic Panel (12/16/21 21:02) Hcg,Qualitative Urine (12/16/21 21:02) Lipase (12/16/21 21:02) Magnesium (12/16/21 21:02) Ua Culture If Indicated (12/16/21 21:02) Crp Fs (12/16/21 21:02) Chest 1 View Ap/Pa Only (12/16/21 21:02) Ekg Tracing (12/16/21 21:02) Monitor-Rhythm Ecg Trace Only (12/16/21 21:02) Ekg Tracing (12/16/21 21:15) Aspirin Chewable Tablet (Baby Aspirin Ch (12/16/21 21:15) Troponin I Fs (12/16/21 21:35) Troponin I Fs (12/16/21 21:03) Medications Given in ED Current Medications Medications Dose Ordered Sig/Margie Route Start Time Stop Time Status Last Admin Dose Admin Aspirin 324 mg ONCE ONCE PO 12/16/21 21:15 12/16/21 21:17 DC 12/16/21 21:24 324 MG Vital Signs/I&O 12/16/21 20:57 Temp 37.0 Pulse 86 Resp 14 B/P (MAP) 171/67 (101) Pulse Ox 86 O2 Delivery Room Air Progress Progress Note : Progress Note Patient with slight elevation white count and slight elevation of CRP. While reviewing patient's results, patient states that she was seen 4 days ago for a headache and some "ear drainage and was told she maybe had a virus and she was seen 3 days ago again for the headache and treated for "migraine" that she comes in today with his other nonspecific symptoms. Patient likely has underlying viral syndrome. Discussed with her that over the next couple days if she gets worse I would recommend she take an [id number] COVID test. She did say her lffv-ggm-zgcosdo heartburn medication to give her some relief I will give her a GI cocktail prior to being discharged. Patient is stable and should follow with her primary care provider if symptoms worsen or return to the ER. Initial ECG Impression Date: Dec 16, 2021 Initial ECG Impression Time: 21:00 Initial ECG Rate: 86 Initial ECG Rhythm: Normal Sinus Initial ECG Intervals: [place] (114) Initial ECG Impression: Nonspecific Changes Comment no acute st elevation Diagnostic Imaging Diagonstic Imaging: Xray Plain Films/CT/US/NM/MRI: chest Comments Date of Exam:12/16/21 CHEST 1 VIEW AP/PA ONLY EXAMINATION: Chest 1 view. HISTORY: Chest pain. COMPARISON: 05/29/2021. FINDINGS: The lung volumes are normal. No focal consolidation is seen. No large pleural effusion or pneumothorax is seen. The cardiomediastinal silhouette is normal in size and contour. No acute osseous abnormality is seen. IMPRESSION: No acute pleuroparenchymal process. Departure Impression Primary Impression: Nonspecific chest pain Additional Impression: Viral syndrome Disposition: 01 HOME, SELF-CARE Condition: Stable Departure-Patient Inst. Referrals: YEHUDA DOMINGUEZ MD (PCP/Family) Primary Care Physician Patient Instructions: Chest Pain That Is Not Caused by the Heart (DC), VIRAL SYNDROME Add. Discharge Instructions: Tylenol or ibuprofen as needed Follow-up with your primary care provider if symptoms have not improved or are worsening over the next couple days JULIETH SHETTY DO Dec 16, 2021 21:02
[2021-12-16 21:08] LABS: BASOPHILS # (AUTO) 0.1 10^3/uL (0.0-0.1); BASOPHILS % (AUTO) 1 % (0-10); EOSINOPHILS # (AUTO) 0.4 10^3/uL (0.0-0.3); EOSINOPHILS % (AUTO) 4 % (0-10); HEMATOCRIT 38 % (35-52); HEMOGLOBIN 11.7 g/dL (11.5-16.0); LYMPHOCYTES # (AUTO) 2.7 10^3/uL (1.0-4.0); LYMPHOCYTES % (AUTO) 25 % (12-44); MEAN CORPUSCULAR HEMOGLOBIN 23 pg (25-34); MEAN CORPUSCULAR HGB CONC 31 g/dL (32-36); MEAN CORPUSCULAR VOLUME 73 fL (80-99); MONOCYTES % (AUTO) 9 % (0-12); NEUTROPHILS % (AUTO) 62 % (42-75); PLATELET COUNT 487 10^3/uL (130-400); WHITE BLOOD COUNT 11.2 10^3/uL (4.3-11.0)
[2021-12-16] MEDS ORDERED: ASPIRIN 81 MG CHEW (CHILDREN'S ASA) PO ONE (21:15)
--- NOTE | 2021-12-16 21:24 | Diagnostic Imaging Report ---
EXAMINATION: Chest 1 view. HISTORY: Chest pain. COMPARISON: 05/29/2021. FINDINGS: The lung volumes are normal. No focal consolidation is seen. No large pleural effusion or pneumothorax is seen. The cardiomediastinal silhouette is normal in size and contour. No acute osseous abnormality is seen. IMPRESSION: No acute pleuroparenchymal process. Dictated by: Dictated on workstation # [id number]
[2021-12-16 21:28] LABS: ALBUMIN 4.5 GM/DL (3.2-4.5); BILIRUBIN,TOTAL 0.9 MG/DL (0.1-1.0); CALCIUM 9.6 MG/DL (8.5-10.1); CREATININE SERUM 0.63 MG/DL (0.60-1.30); MAGNESIUM 1.6 MG/DL (1.6-2.4); POTASSIUM 3.5 MMOL/L (3.6-5.0); TOTAL PROTEIN 7.9 GM/DL (6.4-8.2)
[2021-12-16 22:02] VITALS: BP 150/79
[2021-12-16] MEDS ORDERED: LIDOCAINE 2% VISCOUS 15 ML UDC PO ONE (22:15)
[2021-12-16] MEDS ORDERED: ANTACID SUSP 30 ML UDC (MYLANTA) PO ONE (22:15)
== END 2021-12-16 22:09 | disposition home or self-care (01) ==
LOC: EDUNIT# 20:54 → ER FS 20:57
DX: B34.9 Viral infection, unspecified (principal); R79.82 Elevated C-reactive protein (CRP); D72.829 Elevated white blood cell count, unspecified; Z28.310 Unvaccinated for COVID-19
CPT/HCPCS: 36415; 71045; 80053; 83690; 83735; 84484; 85025; 86141; 93005; 93041

== ENCOUNTER → 2022-01-31 | Outpatient (CLI) | payer BC | LOC: ORTHO 15:48 | PROVIDERS: ATTEND Orthopaedic Surgery | DX: G56.03 Carpal tunnel syndrome, bilateral upper limbs (principal); I10 Essential (primary) hypertension; E03.9 Hypothyroidism, unspecified; E66.01 Morbid (severe) obesity due to excess calories; E11.9 Type 2 diabetes mellitus without complications ==

== ENCOUNTER 2022-02-07 06:03 | Outpatient (CLI) | payer BC ==
[~2022-02-07] VITALS: Ht 160 cm; Wt 115.9 kg
[2022-02-08] MEDS ORDERED: RT-ALBUINH IH (12:24)
[2022-02-08] MEDS ORDERED: FLUO20CA48 PO (12:24)
[2022-02-08] MEDS ORDERED: HYDR25TA4 PO (12:24)
[2022-02-08] MEDS ORDERED: LISI10TA25 PO (12:24)
[2022-02-08] MEDS ORDERED: METF-399 PO (12:24)
[2022-02-08] MEDS ORDERED: LEVO75CA5 PO (12:24)
[2022-02-08] MEDS ORDERED: ceFAZolin INJECTION 2,000 MG in NS (IVPB) 50 ML IV ONE (14:30)
== END 2022-02-08 12:39 ==
LOC: PREOP 06:03
PROVIDERS: ATTEND Orthopaedic Surgery
DX: Z01.818 Encounter for other preprocedural examination (principal); G56.01 Carpal tunnel syndrome, right upper limb

== ENCOUNTER 2022-02-15 08:12 | Day surgery (SDC) | payer BC ==
[2022-02-15] VITALS (8 sets, daily range): BP systolic 101–134; BP diastolic 45–83
[~2022-02-15] VITALS: Ht 160 cm; Wt 115.9 kg
[~2022-02-15 08:12] MED LIST changes: +FLUO20CA48 PO; +HYDR25TA4 PO; +LEVO75CA5 PO; +LISI10TA25 PO; +METF-399 PO; +RT-ALBUINH IH; -RT-ALBUTEROL SULF 2.5 MG/3 ML PRE-MIX VIAL INH ONE
[2022-02-15] MEDS ORDERED: LACTATED RINGERS 1,000 ML IV PRN (08:30)
--- NOTE | 2022-02-15 08:46 | Progress Note-Pre Operative ---
Pre-Operative Progress Note Date of Available H&P: Jan 31, 2022 Date H&P Reviewed: Feb 15, 2022 Time H&P Reviewed: 08:40 History & Physical: H&P Reviewed, Patient Examed, No changes noted Pre-Operative Diagnosis: Right Carpal Tunnel Syndrome BETHEL MALONEY MD Feb 15, 2022 08:46
[2022-02-15] MEDS ORDERED: MIDAZOLAM 2 MG/2 ML (VERSED) VIAL ONE (09:24)
[2022-02-15] MEDS ORDERED: LIDOCAINE 1% INJ 20 ML VIAL ONE (09:55)
[2022-02-15] MEDS ORDERED: LIDOCAINE PF 0.5% 50 ML (XYLOCAINE) VIAL ONE (09:58)
[2022-02-15] MEDS ORDERED: PROPOFOL INJECTION 50 ML IV ONE ×2 (09:59→10:32)
[2022-02-15] MEDS: ceFAZolin 2 GM IV Premixed 50 ML IV SCH (10:49)
--- NOTE | 2022-02-15 10:51 | Operative Report - Ortho ---
Operative Report Surgeon (s)/Nut Former (s) Surgeon BETHEL MALONEY MD Nut Former n/a Pre-Operative Diagnosis Right Carpal Tunnel Syndrome Post-Operative Diagnosis same Operative Report Date of Procedure: Feb 15, 2022 Name of Procedure Performed: Right Carpal Tunnel Release Description & Findings After obtaining informed consent and marking the patient in the preoperative holding area, the patient was administered IV antibiotics. The patient was taken to the operating room and nika block anesthesia was induced. The right upper extremity was prepped and draped in the usual sterile fashion. Surgical timeout was taken. Incision was made just ulnar to the thenar crease. Blunt dissection was carried down to the longitudinal fibers of the palmar fascia; these were divided in line revealing the transverse carpal ligament. Beginning distally and working proximally, carpal tunnel release was performed. Nerve protector was placed and release was completed back to the level of the forearm fascia. Probe was inserted and release was palpably complete. Tourniquet was dropped and hemostasis was achieved. Wound was closed with 4-0 nylon. Wound was dressed with antibiotic ointment, xeroform, 4x4s, matthieu, ABD for soft splint, cast padding, and ROSAMARIA wrap. Patient tolerated the procedure well and was stable to the recovery room. Anesthesia Type Nika Block Estimated Blood Loss minimal Specimen(s) collected/removed None BETHEL MALONEY MD Feb 15, 2022 10:51
[2022-02-15] MEDS ORDERED: OXC5T PO (10:53)
[2022-02-15] MEDS ORDERED: ONDANSETRON 4 MG/2 ML (SDV) Z0FRAN IVP PRN (11:00)
[2022-02-15] MEDS ORDERED: morphine INJ 10 MG/ML 1ML (SYR OR VIAL) IVP ONE (11:00)
--- NOTE | 2022-02-15 13:02 | Anesthesia-General Post-Op ---
MAC Patient Condition Mental Status/LOC: Same as Preop Cardiovascular: Satisfactory Nausea/Vomiting: Absent Respiratory: Satisfactory Pain: Controlled Complications: Absent Post Op Complications Complications None Follow Up Care/Instructions Patient Instructions None needed. Anesthesiology Discharge Order Discharge Order Patient is doing well, no complaints, stable vital signs, no apparent adverse anesthesia problems. No complications reported per nursing. BETHEL ASHLEY CRNA Feb 15, 2022 13:02
== END 2022-02-15 12:05 | disposition home or self-care (01) ==
LOC: SDC 08:12
PROVIDERS: ATTEND Orthopaedic Surgery
DX: G56.01 Carpal tunnel syndrome, right upper limb (principal); E66.9 Obesity, unspecified; K21.9 Gastro-esophageal reflux disease without esophagitis; Z79.899 Other long term (current) drug therapy; Z79.84 Long term (current) use of oral hypoglycemic drugs
CPT/HCPCS: 84703; 87081

== ENCOUNTER 2022-03-08 09:49 | Outpatient (CLI) | payer BC ==
[~2022-03-08] VITALS: Ht 160.2 cm; Wt 118.0 kg
[~2022-03-08 09:49] MED LIST changes: +OXC5T PO
== END 2022-03-08 11:13 | disposition home or self-care (01) ==
LOC: PREOP 09:49
PROVIDERS: ATTEND Orthopaedic Surgery
DX: Z01.818 Encounter for other preprocedural examination (principal); G56.02 Carpal tunnel syndrome, left upper limb

== ENCOUNTER 2022-03-11 06:36 | Day surgery (SDC) | payer BC ==
[~2022-03-11] VITALS: Ht 160.2 cm; Wt 118.0 kg
[2022-03-11] VITALS (8 sets, daily range): BP systolic 112–144; BP diastolic 58–93
[2022-03-11] MEDS ORDERED: LACTATED RINGERS 1,000 ML IV PRN ×2 (06:45)
[2022-03-11] MEDS ORDERED: LIDOCAINE PF 0.5% 50 ML (XYLOCAINE) VIAL ONE (07:05)
[2022-03-11] MEDS ORDERED: PROPOFOL INJECTION 50 ML IV ONE ×2 (07:05→08:16)
[2022-03-11] MEDS ORDERED: MIDAZOLAM 2 MG/2 ML (VERSED) VIAL ONE (07:06)
[2022-03-11] MEDS ORDERED: ceFAZolin INJECTION 2,000 MG ONE (07:15)
[2022-03-11] MEDS ORDERED: NEO/POLY/BAC (NEOSPORIN) OINT 15 GM TUBE ONE (07:25)
[2022-03-11] MEDS ORDERED: BUPIVACAINE 0.5% 30 ML (SENSORCAINE) VIAL ONE (07:25)
[2022-03-11] MEDS ORDERED: ceFAZolin INJECTION 2,000 MG in NS (IVPB) 50 ML IV ONE (07:30)
--- NOTE | 2022-03-11 08:50 | Operative Report - Ortho ---
Operative Report Surgeon (s)/Darkroom Worker (s) Surgeon BETHEL MALONEY MD Darkroom Worker n/a Pre-Operative Diagnosis LEFT CARPAL TUNNEL SYNDROME Post-Operative Diagnosis same Operative Report Date of Procedure: Mar 11, 2022 Name of Procedure Performed: Left Carpal Tunnel Release Description & Findings After obtaining informed consent and marking the patient in the preoperative holding area, the patient was administered IV antibiotics. The patient was t aken to the operating room and nika block anesthesia was induced. The left upper extremity was prepped and draped in the usual sterile fashion. Surgical timeout was taken. Incision was made just ulnar to the thenar crease. Blunt dissection was carried down to the longitudinal fibers of the palmar fascia; these were divided in line revealing the transverse carpal ligament. Beginning distally and working proximally, carpal tunnel release was performed. Nerve protector was placed and release was completed back to the level of the forearm fascia. Probe was inserted and release was palpably complete. Tourniquet was dropped and hemostasis was achieved. Wound was closed with 4-0 nylon. Wound was dressed with antibiotic ointment, xeroform, 4x4s, matthieu, ABD for soft splint, cast padding, and ROSAMARIA wrap. Patient tolerated the proceudre well and was stable to the recovery room. Anesthesia Type Nika Block Estimated Blood Loss minimal Specimen(s) collected/removed None BETHEL MALONEY MD Mar 11, 2022 08:49
[2022-03-11] MEDS ORDERED: ONDANSETRON 4 MG/2 ML (SDV) Z0FRAN IVP PRN (09:00)
[2022-03-11] MEDS ORDERED: HYDROmorphone 2 MG/ML VIAL (DILAUDID) IV ONE (09:00)
[2022-03-11] MEDS ORDERED: morphine INJ 10 MG/ML 1ML (SYR OR VIAL) IVP ONE (09:00)
[2022-03-11] MEDS ORDERED: MEPERIDINE (DEMEROL) INJ 50 MG/ML IVP ONE (09:00)
[2022-03-11] MEDS ORDERED: PROMETHAZINE INJ 25 MG/ML (PHENERGAN) AMP IVP ONE (09:00)
--- NOTE | 2022-03-11 10:51 | Anesthesia-General Post-Op ---
MAC Patient Condition Mental Status/LOC: Same as Preop Cardiovascular: Satisfactory Nausea/Vomiting: Absent Respiratory: Satisfactory Pain: Controlled Complications: Absent Post Op Complications Complications None Follow Up Care/Instructions Patient Instructions None needed. Anesthesiology Discharge Order Discharge Order Patient is doing well, no complaints, stable vital signs, no apparent adverse anesthesia problems. No complications reported per nursing. BETHEL ASHLEY CRNA Mar 11, 2022 10:51
== END 2022-03-11 10:02 | disposition home or self-care (01) ==
LOC: SDC 06:36
PROVIDERS: ATTEND Orthopaedic Surgery
DX: G56.02 Carpal tunnel syndrome, left upper limb (principal); E66.01 Morbid (severe) obesity due to excess calories; Z68.42 Body mass index [BMI] 45.0-49.9, adult; Z28.310 Unvaccinated for COVID-19
CPT/HCPCS: 84703; 87081